=== PATIENT | male | born 1950 | race Asian ===

== ENCOUNTER 2022-09-12 10:59 | Emergency (ER) | payer OTHER ==
[~2022-09-12] VITALS: Ht 182.9 cm; Wt 65.8 kg
[2022-09-12 11:03] VITALS: TEMP 99
[2022-09-12 12:03] LABS: PLATELET COUNT 210 K/uL (142-355)
[2022-09-12 12:16] LABS: POTASSIUM 3.8 mmol/L (3.6-5.2)
[2022-09-12 13:06] VITALS: BP 167/75
== END 2022-09-12 13:06 | disposition home or self-care (01) ==
LOC: ED 10:59
PROVIDERS: Emergency Medicine
DX: M62.838 Other muscle spasm (principal)
CPT/HCPCS: 80053; 81002; 83880; 84484; 85027; 85379; 96372; 99283; J1885; J2360